=== PATIENT | male | born 1970 | race Caucasian/White ===

== ENCOUNTER 2022-02-19 10:57 | Inpatient (IN) | payer OTHER ==
[2022-02-19] MEDS ORDERED: MAGNESIUM CITRATE 300 ML BOTTLE PO PRN (12:28)
[2022-02-19] MEDS ORDERED: BISMUTH SUBSALICYLATE 524 MG/30 ML PO PRN (12:28)
[2022-02-19] MEDS ORDERED: NALOXONE HCL 0.4 MG/ML VIAL IM PRN (12:28)
[2022-02-19] MEDS ORDERED: IBUPROFEN 400 MG TABLET (FP) PO PRN (12:28)
[2022-02-19] MEDS ORDERED: cloNIDine HCL 0.1 MG TABLET PO PRN (12:28)
[2022-02-19] MEDS ORDERED: LOPERAMIDE HCL 2 MG CAPSULE PO PRN (12:28)
[2022-02-19] MEDS ORDERED: MAGNESIUM HYDROX 2400MG/30ML ORAL SUSPENSION 30 ML CUP PO PRN (12:28)
[2022-02-19] MEDS ORDERED: ACETAMINOPHEN 325 MG TABLET (FP) PO PRN ×2 (12:28)
[2022-02-19] MEDS ORDERED: NICOTINE POLACRILEX 4 MG GUM BUC PRN (12:28)
[2022-02-19] MEDS ORDERED: DICYCLOMINE HCL 10 MG CAPSULE PO PRN (12:28)
[2022-02-19] MEDS ORDERED: ONDANSETRON *ODT* 4 MG TABLET SL PRN (12:28)
[2022-02-19] MEDS ORDERED: P-EPHED 60MG/TRIPROLIDI 2.5MG TABLET PO PRN (12:28)
[2022-02-19] MEDS ORDERED: MAG HYDROX/AL HYDROX/SIMETH 30 ML UNIT-DOSE CUP PO PRN (12:28)
[2022-02-19] MEDS ORDERED: BENZOCAINE/MENTHOL (CHLORASEPTIC ) LOZENGE MM PRN (12:28)
[2022-02-19 13:00] VITALS: BMI 19.8
[2022-02-19] MEDS ORDERED: methaDONE HCL 10 MG TABLET (FOR DETOX USE ONLY) PO ONE (13:00)
[2022-02-19] MEDS: hydrOXYzine PAMOATE 25 MG CAPSULE (FP) PO PRN (13:34)
[2022-02-19] MEDS: METHOCARBAMOL 500 MG TABLET PO PRN (13:34)
[2022-02-19] MEDS: diazePAM 5 MG TABLET PO PRN (13:34)
[2022-02-19] MEDS: NICOTINE 21 MG/24 HOURS TOPICAL PATCH TD SCH (13:36)
[2022-02-19] MEDS: THIAMINE HCL 100 MG TABLET (FP) PO SCH (23:26)
[2022-02-19] MEDS: SULFAMETHOXAZOLE/TRIMETHOPRIM 800MG/160MG D.S. TABLET PO SCH (23:26)
[2022-02-19] MEDS: MELATONIN 5 MG TABLETS PO SCH (23:26)
[2022-02-20] MEDS: diazePAM 5 MG TABLET PO PRN ×2 (02:12→21:22)
[2022-02-20] MEDS ORDERED: methaDONE HCL 10 MG TABLET (FOR DETOX USE ONLY) ONE (09:20)
[2022-02-20] MEDS: SULFAMETHOXAZOLE/TRIMETHOPRIM 800MG/160MG D.S. TABLET PO SCH ×2 (10:16→21:20)
[2022-02-20] MEDS: NICOTINE 21 MG/24 HOURS TOPICAL PATCH TD SCH (10:16)
[2022-02-20] MEDS: PRENATAL VITAMINS W/ FOLIC ACID TABLET (FP) PO SCH (10:16)
[2022-02-20] MEDS: hydrOXYzine PAMOATE 25 MG CAPSULE (FP) PO PRN (10:17)
[2022-02-20 12:43] LABS: HEMATOCRIT 39.9 % (35.4-49); HEMOGLOBIN 12.8 GM/dL (11.7-16.9); MCH 24.5 pg (25.7-33.7); MCHC 32.1 g/dl (32.0-35.9); MEAN CELL VOLUME 76.5 fl (80-96); MEAN PLT VOLUME 8.3 fl (7.5-11.1); PLATELET COUNT 296 10^3/uL (134-434); RBC 5.21 M/mm3 (4.00-5.60); WHITE BLOOD COUNT 8.8 K/mm3 (4.0-10.0)
[2022-02-20 12:49] LABS: ALBUMIN 3.2 g/dl (3.4-5.0); BLOOD UREA NITROGEN 12.3 mg/dL (7-18); CALCIUM 9.3 mg/dL (8.5-10.1)
[2022-02-20 12:52] LABS: CREATININE 0.9 mg/dL (0.55-1.3)
[2022-02-20 12:54] LABS: BILIRUBIN,TOTAL 0.2 mg/dL (0.2-1); TOT PROT 7.5 g/dl (6.4-8.2)
[2022-02-20] MEDS: MELATONIN 5 MG TABLETS PO SCH (21:20)
[2022-02-20] MEDS: THIAMINE HCL 100 MG TABLET (FP) PO SCH (21:20)
[2022-02-21] MEDS ORDERED: TRIMETHOBENZAMIDE HCL 200MG/2ML INJ IM PRN (09:16)
[2022-02-21] MEDS ORDERED: methaDONE HCL 10 MG TABLET (FOR DETOX USE ONLY) PO ONE (10:00)
[2022-02-21] MEDS: SULFAMETHOXAZOLE/TRIMETHOPRIM 800MG/160MG D.S. TABLET PO SCH ×2 (10:13→22:46)
[2022-02-21] MEDS: PRENATAL VITAMINS W/ FOLIC ACID TABLET (FP) PO SCH (10:13)
[2022-02-21] MEDS: NICOTINE 21 MG/24 HOURS TOPICAL PATCH TD SCH (10:14)
[2022-02-21] MEDS ORDERED: ONDANSETRON *ODT* 4 MG TABLET SL ONE (10:15)
[2022-02-21] MEDS ORDERED: DICYCLOMINE HCL 10 MG CAPSULE PO ONE (10:15)
[2022-02-21] MEDS ORDERED: IBUPROFEN 400 MG TABLET (FP) PO ONE (10:15)
[2022-02-21] MEDS ORDERED: BACLOFEN 10 MG TABLET (FP) PO ONE (10:15)
[2022-02-21] MEDS ORDERED: cloNIDine HCL 0.1 MG TABLET PO ONE (10:15)
[2022-02-21] MEDS: NICOTINE 10 MG CARTRIDGE (INHALER) IH PRN (10:46)
[2022-02-21] MEDS: diazePAM 5 MG TABLET PO PRN (22:46)
[2022-02-21] MEDS: THIAMINE HCL 100 MG TABLET (FP) PO SCH (22:46)
[2022-02-21] MEDS: MELATONIN 5 MG TABLETS PO SCH (22:47)
[2022-02-22 07:36] LABS: SARS-CoV-2 NAA Not Detected
[2022-02-22] MEDS ORDERED: methaDONE HCL 10 MG TABLET (FOR DETOX USE ONLY) ONE ×2 (08:52→10:07)
[2022-02-22] MEDS: PRENATAL VITAMINS W/ FOLIC ACID TABLET (FP) PO SCH (10:01)
[2022-02-22] MEDS: diazePAM 5 MG TABLET PO PRN (10:02)
[2022-02-22] MEDS: METHOCARBAMOL 500 MG TABLET PO PRN (10:02)
[2022-02-22] MEDS: SULFAMETHOXAZOLE/TRIMETHOPRIM 800MG/160MG D.S. TABLET PO SCH ×2 (10:02→22:18)
[2022-02-22] MEDS: NICOTINE 21 MG/24 HOURS TOPICAL PATCH TD SCH (10:03)
[2022-02-22] MEDS: MELATONIN 5 MG TABLETS PO SCH (22:16)
[2022-02-22] MEDS: hydrOXYzine PAMOATE 25 MG CAPSULE (FP) PO PRN (22:18)
[2022-02-22] MEDS: THIAMINE HCL 100 MG TABLET (FP) PO SCH (22:18)
[2022-02-23] MEDS ORDERED: methaDONE HCL 10 MG TABLET (FOR DETOX USE ONLY) PO ONE (10:00)
[2022-02-23] MEDS: hydrOXYzine PAMOATE 25 MG CAPSULE (FP) PO PRN ×2 (10:08→22:42)
[2022-02-23] MEDS: PRENATAL VITAMINS W/ FOLIC ACID TABLET (FP) PO SCH (10:08)
[2022-02-23] MEDS: SULFAMETHOXAZOLE/TRIMETHOPRIM 800MG/160MG D.S. TABLET PO SCH ×2 (10:08→22:41)
[2022-02-23] MEDS: NICOTINE 10 MG CARTRIDGE (INHALER) IH PRN ×2 (10:08→14:27)
[2022-02-23] MEDS: NICOTINE 21 MG/24 HOURS TOPICAL PATCH TD SCH (10:08)
[2022-02-23] MEDS: METHOCARBAMOL 500 MG TABLET PO PRN (10:08)
[2022-02-23] MEDS: MELATONIN 5 MG TABLETS PO SCH (22:41)
[2022-02-23] MEDS: THIAMINE HCL 100 MG TABLET (FP) PO SCH (22:41)
[2022-02-24] MEDS: NICOTINE 10 MG CARTRIDGE (INHALER) IH PRN (09:10)
[2022-02-24 09:11] VITALS: BP 114/68; PULSE 98; TEMP 96.9
[2022-02-24] MEDS: PRENATAL VITAMINS W/ FOLIC ACID TABLET (FP) PO SCH (10:28)
[2022-02-24] MEDS: NICOTINE 21 MG/24 HOURS TOPICAL PATCH TD SCH (10:28)
[2022-02-24] MEDS: SULFAMETHOXAZOLE/TRIMETHOPRIM 800MG/160MG D.S. TABLET PO SCH (10:28)
== END 2022-02-24 09:28 | disposition home or self-care (01) | DRG 897 ==
LOC: YASAS 10:57 → Y6N 12:50
PROVIDERS: ADMIT Allergy & Immunology; ATTEND Surgery
PROC: HZ2ZZZZ Detoxification Services for Substance Abuse Treatment (ICD-10-PCS; principal; 2022-02-19)
DX: F11.23 Opioid dependence with withdrawal (principal); F14.20 Cocaine dependence, uncomplicated; L03.116 Cellulitis of left lower limb; F17.210 Nicotine dependence, cigarettes, uncomplicated; F31.9 Bipolar disorder, unspecified; F20.9 Schizophrenia, unspecified; F41.9 Anxiety disorder, unspecified; M54.50 Low back pain, unspecified; G89.29 Other chronic pain
CPT/HCPCS: 36415; 80053; 85027; 86780; 93005; 93010; C9803-CS; J0475; J0735; Q0162; U0003; U0005

== ENCOUNTER 2023-07-29 10:55 | Inpatient (IN) | payer OTHER ==
[2023-07-29 12:50] VITALS: BMI 19.3
[2023-07-29] MEDS ORDERED: ACETAMINOPHEN 325 MG TABLET (FP) PO PRN (13:38)
[2023-07-29] MEDS ORDERED: MAG HYDROX/AL HYDROX/SIMETH 30 ML UNIT-DOSE CUP PO PRN (13:38)
[2023-07-29] MEDS ORDERED: IBUPROFEN 400 MG TABLET (FP) PO PRN (13:38)
[2023-07-29] MEDS ORDERED: LOPERAMIDE HCL 2 MG CAPSULE PO PRN (13:38)
[2023-07-29] MEDS ORDERED: ONDANSETRON *ODT* 4 MG TABLET SL PRN (13:38)
[2023-07-29] MEDS ORDERED: IBUPROFEN 600 MG TABLET (FP) PO PRN (13:38)
[2023-07-29] MEDS ORDERED: POLYETHYLENE GLYCOL (HEALTHYLAX) 3350 17 GM PACKET PO PRN (13:38)
[2023-07-29] MEDS ORDERED: MAGNESIUM HYDROX 2400MG/30ML ORAL SUSPENSION 30 ML CUP PO PRN (13:38)
[2023-07-29] MEDS ORDERED: BENZOCAINE/MENTHOL (CHLORASEPTIC ) LOZENGE MM PRN (13:38)
[2023-07-29] MEDS ORDERED: guaiFENesin 600 MG TABLET.ER (FP) PO PRN (13:38)
[2023-07-29] MEDS ORDERED: BUPRENORPHINE HCL 150 MCG, BUPRENORPHINE HCL 75 MCG BC ONE (13:38)
[2023-07-29] MEDS ORDERED: BUPRENORPHINE HCL 150 MCG, BUPRENORPHINE HCL 75 MCG BC PRN (13:38)
[2023-07-29] MEDS ORDERED: BENZONATATE 200 MG CAPSULE PO PRN (13:38)
[2023-07-29] MEDS ORDERED: cloNIDine HCL 0.1 MG TABLET PO ONE (13:38)
[2023-07-29] MEDS ORDERED: NICOTINE POLACRILEX 4 MG GUM BUC PRN (13:38)
[2023-07-29] MEDS ORDERED: BISMUTH SUBSALICYLATE 524 MG/30 ML PO PRN (13:38)
[2023-07-29] MEDS ORDERED: hydrOXYzine PAMOATE 25 MG CAPSULE (FP) PO PRN (13:38)
[2023-07-29] MEDS ORDERED: DICYCLOMINE HCL 10 MG CAPSULE PO PRN (13:38)
[2023-07-29] MEDS ORDERED: NALOXONE HCL 0.4 MG/ML VIAL IM PRN (13:38)
[2023-07-29] MEDS ORDERED: NALOXONE HCL (KLOXXADO) 8 MG SPRAY NS PRN (13:38)
[2023-07-29] MEDS ORDERED: LIDOCAINE 5% TOPICAL PATCH TP PRN (13:38)
[2023-07-29] MEDS ORDERED: DOCUSATE SODIUM 100 MG CAPSULE (FP) PO PRN (13:42)
[2023-07-29] MEDS ORDERED: BUPRENORPHINE HCL 75 MCG FILM BC ONE (15:02)
[2023-07-29] MEDS ORDERED: cloNIDine HCL 0.1 MG TABLET ONE (15:02)
[2023-07-29] MEDS ORDERED: BUPRENORPHINE HCL 150 MCG FILM BC ONE (15:02)
[2023-07-29] MEDS ORDERED: cloNIDine HCL 0.1 MG TABLET PO PRN (17:38)
[2023-07-29] MEDS: THIAMINE HCL 100 MG TABLET (FP) PO SCH (23:04)
[2023-07-29] MEDS: MELATONIN 5 MG TABLETS PO SCH (23:04)
[2023-07-29] MEDS: LIDOCAINE PATCH REMOVAL MC SCH (23:04)
[2023-07-30] MEDS ORDERED: BUPRENORPHINE HCL 150 MCG, BUPRENORPHINE HCL 75 MCG BC PRN
[2023-07-30] MEDS: BUPRENORPHINE HCL 150 MCG, BUPRENORPHINE HCL 75 MCG BC SCH ×2 (06:55→17:32)
[2023-07-30] MEDS ORDERED: BUPRENORPHINE HCL 150 MCG FILM BC ONE (08:57)
[2023-07-30 10:15] LABS: HEMATOCRIT 40.5 % (35.4-49); HEMOGLOBIN 13.7 GM/dL (11.7-16.9); MCH 26.7 pg (25.7-33.7); MCHC 33.9 g/dl (32.0-35.9); MEAN CELL VOLUME 78.7 fl (80-96); MEAN PLT VOLUME 8.4 fl (7.5-11.1); PLATELET COUNT 243 10^3/uL (134-434); RBC 5.14 M/mm3 (4.00-5.60); RDW 15.7 % (11.9-15.9); WHITE BLOOD COUNT 6.4 K/mm3 (4.0-10.0)
[2023-07-30 10:45] LABS: CHLORIDE 107 mmol/L (98-107); POTASSIUM 4.7 mmol/L (3.5-5.1); SODIUM 137 mmol/L (136-145)
[2023-07-30 10:47] LABS: ALBUMIN 3.2 g/dl (3.4-5.0); ANION GAP 4 mmol/L (4-13); BLOOD UREA NITROGEN 13.6 mg/dL (7-18); CALCIUM 8.3 mg/dL (8.5-10.1); CO2 26 mmol/L (21-32); GLUCOSE,RANDOM 91 mg/dL (74-106)
[2023-07-30] MEDS: PRENATAL VITAMINS W/ FOLIC ACID TABLET (FP) PO SCH (10:49)
[2023-07-30 10:50] LABS: CREATININE 0.9 mg/dL (0.55-1.3); SGOT/AST 21 U/L (15-37); SGPT/ALT 15 U/L (13-61)
[2023-07-30 10:52] LABS: BILIRUBIN,TOTAL 0.2 mg/dL (0.2-1); TOT PROT 6.9 g/dl (6.4-8.2)
[2023-07-30 10:53] LABS: ALK PHOS 99 U/L (45-117)
[2023-07-30] MEDS ORDERED: TRIMETHOBENZAMIDE HCL 200MG/2ML INJ IM ONE (11:13)
[2023-07-30] MEDS: diazePAM 5 MG TABLET PO PRN ×2 (13:07→21:54)
[2023-07-30] MEDS: METHOCARBAMOL 500 MG TABLET PO PRN ×2 (17:37→21:54)
[2023-07-30] MEDS: THIAMINE HCL 100 MG TABLET (FP) PO SCH (21:53)
[2023-07-30] MEDS: MELATONIN 5 MG TABLETS PO SCH (21:53)
[2023-07-30] MEDS: LIDOCAINE PATCH REMOVAL MC SCH (21:53)
[2023-07-31] MEDS ORDERED: BUPRENORPHINE HCL 450 MCG FILM BC PRN
[2023-07-31] MEDS ORDERED: BUPRENORPHINE HCL 450 MCG FILM BC SCH (06:00)
[2023-07-31] MEDS: PRENATAL VITAMINS W/ FOLIC ACID TABLET (FP) PO SCH (10:43)
[2023-07-31 12:31] VITALS: BP 128/83; PULSE 66; RESP 18; TEMP 97.8
[2023-08-01] MEDS ORDERED: BUPRENORPHINE/NALOXONE 4 MG/1 MG FILM PACKET SL SCH (06:00)
[2023-08-02] MEDS ORDERED: BUPRENORPHINE/NALOXONE 8 MG/2 MG FILM PACKET SL ONE (06:00)
== END 2023-07-31 14:29 | disposition left against medical advice (07) | DRG 894 ==
LOC: YASAS 10:55 → Y3N 14:59
PROVIDERS: ADMIT Allergy & Immunology; ATTEND Surgery
PROC: HZ2ZZZZ Detoxification Services for Substance Abuse Treatment (ICD-10-PCS; principal; 2023-07-29)
DX: F11.23 Opioid dependence with withdrawal (principal); F14.20 Cocaine dependence, uncomplicated; F17.210 Nicotine dependence, cigarettes, uncomplicated; F31.9 Bipolar disorder, unspecified; F41.9 Anxiety disorder, unspecified; G62.9 Polyneuropathy, unspecified; K21.9 Gastro-esophageal reflux disease without esophagitis; M54.50 Low back pain, unspecified; G89.29 Other chronic pain; R76.8 Other specified abnormal immunological findings in serum; R30.0 Dysuria
CPT/HCPCS: 36415; 80053; 80307; 85027; 86780; 87635; 87811; Q0162